=== PATIENT | male | born 1950 | race Caucasian/White ===

== ENCOUNTER 2016-10-28 15:13 | Inpatient (IN) | payer OTHER ==
[~2016-10-28] VITALS: Ht 185.4 cm; Wt 79.4 kg
--- NOTE | ~2016-10-28 | HC ---
[facility] [place] [place] [address] CONSULTATION Name: AMAIRANI CAMILO Room #: 539-P [facility] IN .R.#: [id number] Admission: 10/28/16 Attend Phys: Yo Pruett MD Discharge: 10/30/16 Date of : 52 Report #: [id number] THIS REPORT FOR: //name// CC: Jeremi Pruett DATE OF SERVICE: 10/28/2016 CHIEF COMPLAINT: The patient has left hip fracture. HISTORY OF PRESENT ILLNESS: The patient is a gentleman complaining of left hip fracture after a fall. Recently, he was admitted to the hospital for hip fixation and we were asked to see him in consultation for surgery. The patient told me that he has no past medical history except prostate cancer, which was removed in 2008 and 1-1/2 years ago, his PSA is felt to raise again. The patient denies any problems with urination. He denies any abdominal pain, nausea, vomiting. He denies any chest pain or short of breath. He denies any lung disease or heart disease. The patient also denies any diarrhea or constipation. The patient stated that his cholesterol is always low. REVIEW OF SYSTEMS: Except that mentioned in HPI, all other systems are negative. PAST MEDICAL HISTORY: Prostate cancer. PAST SURGICAL HISTORY: Status post removal of prostate. FAMILY HISTORY: Bother with brain cancer, sister of colon cancer, and mother of heart disease, and CVA. SOCIAL HISTORY: He does not smoke, drink or take any illicit drugs. MEDICATIONS: No medicines. ALLERGIES: No known drug allergies. LABORATORY DATA: The patient has no blood work done yet. ASSESSMENT AND PLAN: 1. Left hip fracture, recent. Patient is prepared for surgery. Obviously, there is no medical problem mandating any ____of the surgery for now. 2. History of prostate cancer with increasing PSA, this should be followed by his urologist. 3. The patient is full code. 4. The patient should be on gastrointestinal and deep venous thrombosis prophylaxis after the surgery. [facility] [address] [address] CONSULTATION Name: [place] Room #: 539-P [facility] IN [facility]#: [id number] Admission: 10/28/16 Attend Phys: Yo Pruett MD Discharge: 10/30/16 Date of : 52 Report #: [id number] Thank you for the consult. <ELECTRONICALLY SIGNED> By: Aurora Smyth MD 11/06/16 0900 1737 1815 Aurora Smyth MD /nt
--- NOTE | ~2016-10-28 | O ---
[facility] [place] [address] OPERATIVE REPORT Name: AMAIRANI CAMILO Room #: 539-P [facility] IN M.R.#: [id number] Admission: 10/28/16 Attend Phys: Yo Pruett MD Discharge: Date of : 52 Report #: [id number] THIS REPORT FOR: //name// CC: Jeremi Pruett DATE OF SERVICE: 10/29/2016 SERVICE: Orthopedics. FACILITY: [facility]. SURGEON: Yo Pruett MD FILE CONVERSION OPERATOR: None. PREOPERATIVE DIAGNOSES: Displaced left femoral neck fracture. POSTOPERATIVE DIAGNOSES: Displaced left femoral neck fracture. PROCEDURE: Closed reduction and percutaneous pinning of the left femoral neck fracture. COMPLICATIONS: None. DRAINS: None. SPECIMENS: None. ANESTHESIA: General with LMA. ESTIMATED BLOOD LOSS: 50 mL. FINDINGS: 1. Anatomic reduction. 2. Synthes 7.3 mm cannulated screws times 3. HISTORY AND INDICATIONS: The patient is a 66-year-old male who sustained a fall 1 week ago and had a nondisplaced femoral neck fracture on his initial injury films, which were taken 2 days post-injury. He then followed up in the orthopedic clinic and that followup appointment was 4 days following the original injury films, which was therefore 6 days post-injury. He has slight displacement of his fracture. He had risks, benefits, alternatives and indications for surgery discussed with him in detail. We discussed total hip arthroplasty versus percutaneous pinning and he elected for percutaneous pinning knowing that there was a chance that he may have to be converted to total hip [facility] [address] [place] [address] OPERATIVE REPORT Name: AMAIRANI CAMILO Room #: 539-P [facility] IN M.R.#: [id number] Admission: 10/28/16 Attend Phys: Yo Pruett MD Discharge: Date of : 52 Report #: [id number] arthroplasty in the future. Risks, benefits, alternatives and indications for surgery were reviewed with him in detail. Risks include, but not limited to pain, bleeding, infection, injury to nerves or blood vessels, persistent pain despite surgical intervention, failure of any repairs, reconstruction, progression of any preexisting chondral injury including the arthritis as well as complications related to anesthesia such as stroke, heart attack, pulmonary complications, thromboembolic disease and . Despite these, he wished to proceed. PROCEDURE IN DETAIL: After left lower extremity was correctly identified in the preoperative holding area as the operative extremity, the patient was taken to the operating room and placed supine on operating table and general anesthesia with LMA was induced without complication. All bony prominences and subcutaneous nerves were padded appropriately. Prophylactic antibiotics with 2 grams of Ancef were administered at appropriate time. Bilateral traction boots were applied and a gentle reduction maneuver was performed under fluoroscopy after time-out procedure was performed. An anatomic reduction was achieved. Left lower extremity was prepped and draped in standard sterile fashion. Time-out procedure was performed. Under fluoroscopy, the trajectory of the guidepin was established. A 1-inch incision was made on the lateral aspect of the hip and dissection was taken down in percutaneous fashion to the lateral femoral cortex. The entry point was carefully chosen above the level of the lesser trochanter and then the guidepin was advanced across the fracture with the first pin placed in the far in inferior neck as there was some slight comminution in this location and the goal was to provide a good buttress in this position as well as provide slight inferior compression at the fracture before fixing the others. The additional pins were placed across the fracture site under multiple planes of fluoroscopy and then the lateral cortex was over drilled starting with the inferior screw and then working through the inverted triangle in sequential fashion. The screw lengths were 100-105 mm in length and the first one was placed with a washer to allow good compression across the fracture, which could be seen visibly on x-ray once the traction was let down on the boot and when appropriate tension was present & compression was completed, the second and third screws were then placed in a similar fashion, the final x-rays were taken in both AP and lateral planes to confirm that appropriate hardware position was present. The wound was thoroughly irrigated. The fascia was closed with 0 Vicryl and the skin was closed with 2-0 Vicryl followed by jt. Sterile dressing was applied. The patient was awakened from anesthesia and taken to recovery room in stable condition. [address] [address] OPERATIVE REPORT Name: AMAIRANI CAMILO Room #: 539-P [facility] IN M.R.#: [id number] Admission: 10/28/16 Attend Phys: Yo Pruett MD Discharge: Date of : 52 Report #: [id number] There were no complications and all counts were recorded as correct. <ELECTRONICALLY SIGNED> By: Yo Pruett MD 10/30/16 0648 1044 1126 Yo Pruett MD /nt
--- NOTE | ~2016-10-28 | HC ---
[facility] [place] [address] CONSULTATION Name: AMAIRANI CAMILO Room #: 539-P [facility] IN .R.#: [id number] Admission: 10/28/16 Attend Phys: Yo Pruett MD Discharge: 10/30/16 Date of : 52 Report #: [id number] THIS REPORT FOR: //name// CC: Jeremi Pruett DATE OF SERVICE: 10/28/2016 REASON FOR CONSULTATION: Abnormal electrocardiogram. HISTORY OF PRESENT ILLNESS: This is a very pleasant 66-year-old male who fell and subsequently fractured his left hip. The patient was subsequently admitted to the hospital and underwent hip surgery. He denied any prior chest pain, pressure, tightness, heaviness, orthopnea, PND, syncope or near syncope. He said his only other issue is prostate cancer and had done approximately 1-2 years ago without any issues. Consultation was obtained due to the electrocardiogram reading of acute myocardial infarction. Upon presentation with the patient, he is not having any chest discomfort. No shortness of breath. No symptoms whatsoever. He is at his baseline. Review of the electrocardiogram demonstrates J-point elevation, not consistent with acute current of injury. He denies any prior exertional symptomatology in the past and had been active prior to the fracture. PAST MEDICAL HISTORY: Prostate cancer. ALLERGIES: No known drug allergies. MEDICATIONS: At home are none. PAST SURGICAL HISTORY: 1. Prostatectomy. 2. Hip surgery. FAMILY HISTORY: Significant for different types of cancers, but mother did have heart disease prematurely and a cardiovascular accident. SOCIAL HISTORY: The patient does not smoke, consume alcohol or use recreational drugs. He does not follow a particular exercise regimen or dietary restriction. LABORATORY DATA: Laboratories are present and noted in the chart. REVIEW OF SYSTEMS: Except for symptoms previously mentioned and those commensurate with comorbid state, the 10-point review of system is negative. PHYSICAL EXAMINATION: [facility] [address] [place] [address] CONSULTATION Name: AMAIRANI CAMILO Room #: 539-P [facility] IN [facility].#: [id number] Admission: 10/28/16 Attend Phys: Yo Pruett MD Discharge: 10/30/16 Date of : 52 Report #: [id number] GENERAL: Well-developed, well-nourished male, resting comfortably, in no acute distress. VITAL SIGNS: Present and noted in the chart. HEENT: Normocephalic, atraumatic. Pupils are equal, round, reactive to light and accommodation. Extraocular muscles are intact. Sclerae and conjunctivae are anicteric. NECK: JVD is normal. Carotid upstrokes are bilaterally symmetrical. No bruits are heard. No thyromegaly. No lymphadenopathy. LUNGS: Clear to auscultation. No wheezes, rhonchi or crackles. No CVA tenderness. CARDIAC: Demonstrates a regular rhythm. Normal first and second heart sounds. No ventricular or atrial gallops, no rubs noted. No murmurs. No lifts or heaves, PMI normal. ABDOMEN: Soft, nontender, nondistended. Normal bowel sounds. EXTREMITIES: Without cyanosis, clubbing or edema. Distal pulses are intact. DTR symmetrical. NEUROLOGIC: Cranial nerves 2-12 are grossly normal and symmetrical. PSYCHIATRIC: Alert, oriented with normal affect. SKIN: Warm and dry. ELECTROCARDIOGRAM: Sinus mechanism. No acute current of injury noted. IMPRESSION: 1. Abnormal electrocardiogram reading, although the electrocardiogram itself does not show any evidence of myocardial infarction. In view of this, I would not make any changes and would not proceed with any other workup at this juncture. 2. Prostatectomy for prostate cancer with apparently slightly increasing PSA, which is being followed by primary care and his urologist. <ELECTRONICALLY SIGNED> By: Lóepz Alonzo MD 11/01/16 1152 1100 1139 López Alonzo MD /nt
--- NOTE | ~2016-10-28 | EKG ---
[address] [address] ELECTROCARDIOGRAM REPORT Name: AMAIRANI CAMILO Room #: 539-P ADM IN M.R.#: [id number] Admission: 10/28/16 Attend Phys: Yo Pruett MD Discharge: Date of : 52 Report #: [id number] THIS REPORT FOR: //name// [facility] Test Date: 2016-10-28 Test Time: 17:53:00 Pat Name: AMAIRANI CAMILO Department: Room: Gender: M Parks Worker: Cassi ANDRES : 1950 Requested By: Yo Pruett Order Number: [id number] MD: Thor Smith Measurements Intervals [place] Rate: 55 P: 76 KS: 135 QRS: 80 QRSD: 99 T: 64 QT: 407 QTc: 390 Interpretive Statements Sinus bradycardia No significant abnormality No previous ECG available for comparison Electronically Signed On 10-29-2016 7:42:42 DATA OPERATIONS LEADER by Thor Smith [email or web address] <ELECTRONICALLY SIGNED> By: Thor Smith MD, [facility] 10/29/16 0742 1753 1753 Thor Smith MD, FACC /EPI
[2016-10-28 18:28] VITALS: BP 128/77
[2016-10-28 20:10] VITALS: BP 125/72
[2016-10-28 21:15] LABS: HEMATOCRIT 37.7 % (42.0-52.0); HEMOGLOBIN 12.6 gm/dL (14.0-18.0); MCH 29.2 pg (26.0-34.0); MCHC 33.5 % (28.0-37.0); RBC 4.33 mil/uL (4.50-6.00); RDW 13.4 % (10.5-14.5); WBC 6.4 thou/uL (4.0-11.0)
[2016-10-28 21:25] LABS: CALCIUM 9.2 mg/dL (8.5-10.1); CREATININE 1.2 mg/dL (0.6-1.3)
[2016-10-28 23:44] VITALS: BP 105/66
[2016-10-29] VITALS (8 sets, daily range): BP systolic 99–134; BP diastolic 55–77
[2016-10-29] MEDS ORDERED: XARELTO10 MG PO (10:38)
[2016-10-29 11:33] LABS: HEMATOCRIT 37.9 % (42.0-52.0); HEMOGLOBIN 12.7 gm/dL (14.0-18.0); MCH 29.2 pg (26.0-34.0); MCHC 33.6 % (28.0-37.0); RBC 4.36 mil/uL (4.50-6.00); RDW 13.5 % (10.5-14.5); WBC 8.3 thou/uL (4.0-11.0)
[2016-10-30] VITALS: BP 105/66
[2016-10-30 03:46] LABS: ABSOLUTE NEUTROPHILS 6.3 thou/uL (1.4-8.2); BASOPHILS 0.4 % (0.0-2.0); EOSINOPHILS 0.9 % (0.0-3.0); HEMATOCRIT 36.9 % (42.0-52.0); HEMOGLOBIN 12.5 gm/dL (14.0-18.0); LYMPHOCYTES 17.2 % (24.0-44.0); MCH 29.1 pg (26.0-34.0); MCHC 33.8 % (28.0-37.0); MONOCYTES 11.9 % (1.0-8.0); PLATELET COUNT 195 thou/uL (150-400); POLYS 69.6 % (36.0-66.0); RDW 13.1 % (10.5-14.5); WBC 9.1 thou/uL (4.0-11.0)
[2016-10-30 03:52] LABS: MANUAL DIFF NO
[2016-10-30 04:00] VITALS: BP 110/66
[2016-10-30 04:03] LABS: ALBUMIN 3.3 g/dL (3.4-5.0); CALCIUM 8.8 mg/dL (8.5-10.1); CREATININE 1.1 mg/dL (0.6-1.3); TOTAL BILIRUBIN 0.3 mg/dL (<0.1-1.0); TOTAL PROTEIN 6.5 g/dL (6.4-8.2)
[2016-10-30 07:59] VITALS: BP 106/73
[2016-10-30 12:32] VITALS: BP 106/73
[2016-10-30] MEDS ORDERED: CRUTCHES MISCELL (14:07)
== END 2016-10-30 14:45 | disposition home or self-care (01) | DRG 481 ==
LOC: 5S 15:13
PROVIDERS: Nurse Practitioner Family; Orthopaedic Surgery Sports Medicine
PROC: 0QS734Z Reposition Left Upper Femur with Internal Fixation Device, Percutaneous Approach (ICD-10-PCS; principal; 2016-10-29)
DX: S72.002A Fracture of unspecified part of neck of left femur, initial encounter for closed fracture (principal); E44.1 Mild protein-calorie malnutrition; M19.90 Unspecified osteoarthritis, unspecified site; K59.00 Constipation, unspecified; Z96.651 Presence of right artificial knee joint; Z60.2 Problems related to living alone; Z85.46 Personal history of malignant neoplasm of prostate; Z80.0 Family history of malignant neoplasm of digestive organs; Z80.8 Family history of malignant neoplasm of other organs or systems; Z82.49 Family history of ischemic heart disease and other diseases of the circulatory system; Z82.3 Family history of stroke; Z98.890 Other specified postprocedural states; W18.39XA Other fall on same level, initial encounter; Y93.89 Activity, other specified; Y92.89 Other specified places as the place of occurrence of the external cause; Y99.8 Other external cause status
CPT/HCPCS: 10785; 50010; 50101; 50386; 51412; 53400; 53402; 53404; 56524; 57092; 62110; 62900; 70005